=== PATIENT | male | born 1980 | race Caucasian/White ===

== ENCOUNTER → 2019-01-09 | Outpatient (CLI) | payer BC ==
[~2019-01-09] MED LIST: SINCALIDE (KINEVAC) 5 MCG ONE
== END | disposition home or self-care (01) ==
LOC: PETCFH 07:31
PROVIDERS: ATTEND Nurse Practitioner Primary Care
DX: E78.2 Mixed hyperlipidemia (principal); R10.9 Unspecified abdominal pain
CPT/HCPCS: 78227; A9537; J2805